=== PATIENT | female | born 1955 | race Caucasian/White ===

== ENCOUNTER 2021-01-01 23:08 | Emergency (ER) | payer MEDICARE, MEDICAID ==
[~2021-01-01] VITALS: Ht 175.3 cm; Wt 73.0 kg
[2021-01-02] MEDS ORDERED: HYDROCODONE/ACETAMINOPHEN 5/325MG TABLET PO ONE (00:45)
[2021-01-02 04:30] VITALS: BP 162/82
== END 2021-01-02 04:55 | disposition home or self-care (01) ==
LOC: ER 23:08
DX: M25.561 Pain in right knee (principal); N18.6 End stage renal disease; J44.9 Chronic obstructive pulmonary disease, unspecified; Z98.890 Other specified postprocedural states; Z99.2 Dependence on renal dialysis
CPT/HCPCS: 72170; 73552; 73562; 73590; 73610; 99284; L1830

== ENCOUNTER 2021-04-04 17:10 | Inpatient (IN) | payer MEDICARE, MEDICAID ==
[~2021-04-04] VITALS: Ht 170.2 cm; Wt 61.9 kg
[~2021-04-04 17:10] MED LIST: ALBU18HF2 PO; CARV25TA47 PO; FLUT1DIS3 PO; FOLI-43 PO; HYDR100T31 PO; LIDO1ADH48 TP; LOSA100T32 PO; NIFE-72 PO; PANT40TA51 PO; SUCR1TAB PO; TRAM50TA PO; ZOLP5TAB8 PO; [UNRECOGNIZED DRUG - CODE] PO
[2021-04-04 18:13] LABS: BASOPHILS % 0.5 % (0.0-2.0); EOSINOPHILS % 0.7 % (0.0-5.0); LYMPHOCYTES % 26.6 % (20.0-50.0); MEAN CORPUSCULAR HEMOGLOBIN 36.1 pg (28.0-32.0); MEAN CORPUSCULAR VOLUME 106.4 fL (81.0-99.0); MEAN PLATELET VOLUME 7.6 fl (7.4-10.4); MONOCYTES % 12.9 % (2.0-8.0); NEUTROPHILS % 59.3 % (40.0-76.0); PLATELET 99 x1000/uL (130-400); RED BLOOD CELL COUNT 1.82 mill/uL (4.2-5.4); RED CELL DISTRIBUTION WIDTH 19.6 % (11.6-14.6)
[2021-04-04 18:19] LABS: HEMATOCRIT. 19.3 % (36.0-48.0); HEMOGLOBIN. 6.6 g/dL (12.0-16.0)
[2021-04-04 18:20] LABS: CHLORIDE 106 mEq/L (98-107)
[2021-04-04 18:23] LABS: INR 1.1; PROTHROMBIN TIME 11.6 sec (9.6-11.0)
[2021-04-04 20:02] LABS: HEPATITIS B SURFACE ANTIGEN NEGATIVE
[2021-04-04] MEDS ORDERED: ONDANSETRON HCL 4MG/2ML INJ IV PRN (20:30)
[2021-04-04] MEDS ORDERED: ACETAMINOPHEN 325MG TABLET PO PRN ×2 (20:30)
[2021-04-04 21:35] VITALS: BP 136/65
[2021-04-04 22:15] VITALS: BP 136/65
[2021-04-05] VITALS: BP 137/72
[2021-04-05] MEDS ORDERED: HYDROCODONE/ACETAMINOPHEN 5/325MG TABLET PO ONE (07:45)
[2021-04-05] MEDS ORDERED: NALOXONE HCL 0.4MG/ML VIAL IV PRN (08:00)
[2021-04-05 09:00] VITALS: BP 123/62
[2021-04-05 12:00] VITALS: BP 140/66
[2021-04-05] MEDS: HYDROCODONE/ACETAMINOPHEN 10/325MG TABLET PO PRN (13:57)
[2021-04-05 16:00] VITALS: BP 120/53
[2021-04-05 16:47] LABS: BASOPHILS % 0.5 % (0.0-2.0); EOSINOPHILS % 0.8 % (0.0-5.0); LYMPHOCYTES % 29.1 % (20.0-50.0); MEAN CORPUSCULAR HEMOGLOBIN 35.8 pg (28.0-32.0); MEAN CORPUSCULAR VOLUME 106.6 fL (81.0-99.0); MEAN PLATELET VOLUME 7.9 fl (7.4-10.4); MONOCYTES % 11.2 % (2.0-8.0); NEUTROPHILS % 58.4 % (40.0-76.0); PLATELET 92 x1000/uL (130-400); RED BLOOD CELL COUNT 1.63 mill/uL (4.2-5.4); RED CELL DISTRIBUTION WIDTH 19.3 % (11.6-14.6)
[2021-04-05 16:58] LABS: HEMOGLOBIN. 5.8 g/dL (12.0-16.0)
[2021-04-05 16:59] LABS: HEMATOCRIT. 17.3 % (36.0-48.0)
[2021-04-05 17:05] LABS: PHOSPHORUS 5.4 mg/dL (2.5-4.9)
[2021-04-05] MEDS ORDERED: SODIUM POLYSTYRENE SULFONATE 15 G/60 ML BOT PO NR (19:00)
[2021-04-05 20:00] VITALS: BP 130/51
[2021-04-05] MEDS: HYDROXYZINE 25MG TABLET PO PRN (20:51)
[2021-04-06] VITALS: BP 150/84
[2021-04-06] MEDS: EPOETIN ALFA-EPBX 10,000 UNIT/ML VIAL SUBCUT SCH ×2 (01:58→20:02)
[2021-04-06 03:33] VITALS: BP 167/79
[2021-04-06 07:07] LABS: BASOPHILS % 0.4 % (0.0-2.0); EOSINOPHILS % 1.2 % (0.0-5.0); HEMATOCRIT. 23.2 % (36.0-48.0); HEMOGLOBIN. 8.1 g/dL (12.0-16.0); LYMPHOCYTES % 22.4 % (20.0-50.0); MEAN CORPUSCULAR HEMOGLOBIN 34.3 pg (28.0-32.0); MEAN CORPUSCULAR VOLUME 98.8 fL (81.0-99.0); MEAN PLATELET VOLUME 7.9 fl (7.4-10.4); MONOCYTES % 11.6 % (2.0-8.0); NEUTROPHILS % 64.4 % (40.0-76.0); PLATELET 90 x1000/uL (130-400); RED BLOOD CELL COUNT 2.35 mill/uL (4.2-5.4); RED CELL DISTRIBUTION WIDTH 22.9 % (11.6-14.6)
[2021-04-06 07:20] LABS: CHLORIDE 100 mEq/L (98-107)
[2021-04-06 07:26] LABS: PHOSPHORUS 4.1 mg/dL (2.5-4.9)
[2021-04-06 08:00] VITALS: BP 138/64
[2021-04-06] MEDS: HYDROXYZINE 25MG TABLET PO PRN (10:27)
[2021-04-06] MEDS: HYDROCODONE/ACETAMINOPHEN 10/325MG TABLET PO PRN (10:27)
[2021-04-06 13:16] LABS: PLATELET ESTIMATE SLIGHTLY DECREASED
[2021-04-06 16:00] VITALS: BP 117/59
[2021-04-06 20:00] VITALS: BP 131/62
[2021-04-06 21:25] LABS: HEPATITIS B SURFACE ANTIGEN NEGATIVE
[2021-04-07] VITALS (8 sets, daily range): BP systolic 135–165; BP diastolic 58–99
[2021-04-07 12:40] LABS: BASOPHILS % 0.3 % (0.0-2.0); EOSINOPHILS % 1.2 % (0.0-5.0); HEMATOCRIT. 24.9 % (36.0-48.0); HEMOGLOBIN. 8.5 g/dL (12.0-16.0); LYMPHOCYTES % 25.9 % (20.0-50.0); MEAN CORPUSCULAR HEMOGLOBIN 33.6 pg (28.0-32.0); MEAN CORPUSCULAR VOLUME 98.5 fL (81.0-99.0); MEAN PLATELET VOLUME 7.7 fl (7.4-10.4); NEUTROPHILS % 60.6 % (40.0-76.0); PLATELET 84 x1000/uL (130-400); RED BLOOD CELL COUNT 2.53 mill/uL (4.2-5.4); RED CELL DISTRIBUTION WIDTH 23.6 % (11.6-14.6)
[2021-04-07 12:54] LABS: PHOSPHORUS 5.4 mg/dL (2.5-4.9)
[2021-04-07] MEDS: HYDROCODONE/ACETAMINOPHEN 10/325MG TABLET PO PRN (13:22)
[2021-04-07] MEDS: HYDROXYZINE 25MG TABLET PO PRN (13:23)
[2021-04-08] VITALS: BP 157/74
[2021-04-08 04:00] VITALS: BP 147/70
[2021-04-08 08:00] VITALS: BP 151/72
[2021-04-08 12:00] VITALS: BP 169/79
== END 2021-04-08 15:30 | disposition home or self-care (01) | DRG 377 ==
LOC: ER 17:10 → EDBEDREQTM 19:01 → EDBEDREQ 19:01 → SUPCPDRO 19:12 → ENRESERV 20:31 → 7EST 21:35
PROVIDERS: ADMIT Internal Medicine; ATTEND Internal Medicine
PROC: 30233N1 Transfusion of Nonautologous Red Blood Cells into Peripheral Vein, Percutaneous Approach (ICD-10-PCS; principal; 2021-04-05)
PROC: 5A1D80Z Performance of Urinary Filtration, Prolonged Intermittent, 6-18 hours Per Day (ICD-10-PCS; 2021-04-05)
PROC: 5A1D70Z Performance of Urinary Filtration, Intermittent, Less than 6 Hours Per Day (ICD-10-PCS; 2021-04-07)
DX: K92.2 Gastrointestinal hemorrhage, unspecified (principal); N18.6 End stage renal disease; I12.0 Hypertensive chronic kidney disease with stage 5 chronic kidney disease or end stage renal disease; D61.818 Other pancytopenia; E46 Unspecified protein-calorie malnutrition; J90 Pleural effusion, not elsewhere classified; E87.5 Hyperkalemia; J44.9 Chronic obstructive pulmonary disease, unspecified; D64.9 Anemia, unspecified; Z79.899 Other long term (current) drug therapy; Z68.21 Body mass index [BMI] 21.0-21.9, adult; Z99.2 Dependence on renal dialysis; Z99.81 Dependence on supplemental oxygen; M79.642 Pain in left hand; R06.02 Shortness of breath; E87.8 Other disorders of electrolyte and fluid balance, not elsewhere classified
CPT/HCPCS: 36415; 71045; 80048; 80053; 82270; 83735; 83880; 84100; 84484; 85025; 86705; 86709; 86803; 86850; 86900; 86920; 87340; 93005; 97162; 97166; 99291; J0885; P9016

== ENCOUNTER 2021-04-09 17:48 | Inpatient (IN) | payer MEDICARE, MEDICAID ==
[~2021-04-09] VITALS: Ht 175.3 cm; Wt 81.2 kg
[2021-04-09] MEDS ORDERED: SODIUM CHLORIDE 0.9% 1,000 ML IV ONE (20:00)
[2021-04-09 21:28] LABS: BASOPHILS % 0.3 % (0.0-2.0); EOSINOPHILS % 0.9 % (0.0-5.0); HEMATOCRIT. 21.4 % (36.0-48.0); HEMOGLOBIN. 7.5 g/dL (12.0-16.0); LYMPHOCYTES % 24.2 % (20.0-50.0); MEAN CORPUSCULAR HEMOGLOBIN 34.9 pg (28.0-32.0); MEAN CORPUSCULAR VOLUME 99.6 fL (81.0-99.0); MEAN PLATELET VOLUME 7.6 fl (7.4-10.4); MONOCYTES % 12.9 % (2.0-8.0); NEUTROPHILS % 61.7 % (40.0-76.0); PLATELET 76 x1000/uL (130-400); RED BLOOD CELL COUNT 2.15 mill/uL (4.2-5.4)
[2021-04-09 21:36] LABS: CHLORIDE 103 mEq/L (98-107)
[2021-04-09 21:53] LABS: PLATELET ESTIMATE DECREASED
[2021-04-09 23:04] LABS: INR 1.2; PARTIAL THROMBOPLASTIN TIME 27.7 sec (23.4-31.0); PROTHROMBIN TIME 12.4 sec (9.6-11.0)
[2021-04-09 23:15] LABS: HEPATITIS B SURFACE ANTIGEN NEGATIVE
[2021-04-10] VITALS (8 sets, daily range): BP systolic 132–162; BP diastolic 62–95
[2021-04-10] MEDS ORDERED: CLONIDINE 0.1MG TABLET PO PRN (08:45)
[2021-04-10] MEDS ORDERED: ACETAMINOPHEN 325MG TABLET PO PRN (08:45)
[2021-04-10] MEDS ORDERED: ONDANSETRON HCL 4MG/2ML INJ IV PRN (08:45)
[2021-04-10] MEDS: SODIUM CHLORIDE 0.9% 1,000 ML IV SCH ×2 (11:13→22:14)
[2021-04-10] MEDS: PANTOPRAZOLE SODIUM 40 MG/VIAL IV SCH (11:13)
[2021-04-10] MEDS: LOSARTAN POTASSIUM 100 MG TABLET PO SCH (12:00)
[2021-04-10] MEDS ORDERED: ALBUTEROL 6.7GM HFA INHALER INH PRN (12:00)
[2021-04-10] MEDS ORDERED: SUCRALFATE 1G TABLET PO SCH (12:00)
[2021-04-10] MEDS ORDERED: LIDOCAINE TP SCH (12:00)
[2021-04-10] MEDS: FOLIC ACID 1MG TABLET PO SCH (12:00)
[2021-04-10] MEDS ORDERED: ALBUTEROL (0.083%) 2.5MG/3ML NEB HHN PRN (12:15)
[2021-04-10] MEDS ORDERED: NALOXONE HCL 0.4MG/ML VIAL IV PRN (12:15)
[2021-04-10] MEDS ORDERED: SUCR1TAB PO ×3 (12:52→14:48)
[2021-04-10] MEDS ORDERED: CALCIUM CARBONATE 400 MG PO SCH (13:00)
[2021-04-10] MEDS: HYDRALAZINE HCL 100MG TABLET PO SCH ×2 (13:00→17:00)
[2021-04-10 13:05] LABS: MEAN CORPUSCULAR HEMOGLOBIN 34.7 pg (28.0-32.0); MEAN CORPUSCULAR VOLUME 100.2 fL (81.0-99.0); PLATELET 66 x1000/uL (130-400); RED BLOOD CELL COUNT 1.84 mill/uL (4.2-5.4); RED CELL DISTRIBUTION WIDTH 23.2 % (11.6-14.6)
[2021-04-10] MEDS ORDERED: NIFE-32 PO (13:08)
[2021-04-10] MEDS ORDERED: CALC-586 PO ×2 (13:09→13:14)
[2021-04-10] MEDS ORDERED: SUCRALFATE 1G TABLET PO PRN (13:15)
[2021-04-10 13:20] LABS: HEMATOCRIT 18.4 % (36.0-48.0); HEMOGLOBIN 6.4 g/dL (12.0-16.0)
[2021-04-10] MEDS: NIFEDIPINE XL 60MG TAB PO SCH (14:00)
[2021-04-10] MEDS ORDERED: LIDOCAINE HCL 1% 20ML VIAL (Pyxis) INJ ONE (14:07)
[2021-04-10] MEDS ORDERED: CARV25TA47 PO (14:34)
[2021-04-10] MEDS ORDERED: LIDO1ADH48 TP (14:50)
[2021-04-10] MEDS ORDERED: LIDO700A30 EXT (14:53)
[2021-04-10] MEDS ORDERED: CARV12.545 PO (14:59)
[2021-04-10] MEDS: SUCRALFATE 1G TABLET PO SCH (15:15)
[2021-04-10] MEDS ORDERED: MEDICATION NOT ON FORMULARY EA (Carvedilol 25 MG) PO SCH (17:00)
[2021-04-10] MEDS ORDERED: NIFEDIPINE 60 MG PO SCH (17:00)
[2021-04-10] MEDS ORDERED: SALMETEROL NEB SCH (17:00)
[2021-04-10] MEDS ORDERED: FLUTICASONE NEB SCH (17:00)
[2021-04-10] MEDS ORDERED: CALCIUM CARBONATE 500 MG PO SCH (17:00)
[2021-04-10] MEDS ORDERED: LIDOCAINE 5% PATCH TOP PRN (18:00)
[2021-04-10] MEDS ORDERED: ZOLPIDEM TARTRATE 5MG TABLET PO PRN (21:00)
[2021-04-10] MEDS: TRAMADOL 50MG TABLET PO PRN (21:26)
[2021-04-10] MEDS: CARVEDILOL 12.5MG TABLET PO SCH (21:26)
[2021-04-10] MEDS: CALCIUM CARBONATE 500MG TABLET CHEW PO SCH (21:27)
[2021-04-10 22:16] LABS: HEMATOCRIT 21.5 % (36.0-48.0); HEMOGLOBIN 7.4 g/dL (12.0-16.0)
[2021-04-11] VITALS: BP 126/61
[2021-04-11] MEDS: HYDROCODONE/ACETAMINOPHEN 5/325MG TABLET PO PRN ×3 (00:26→20:48)
[2021-04-11 04:00] VITALS: BP 118/59
[2021-04-11] MEDS: DIPHENHYDRAMINE 50MG/ML VIAL IV PRN ×2 (04:18→16:23)
[2021-04-11 05:38] LABS: BASOPHILS % 0.5 % (0.0-2.0); EOSINOPHILS % 1.5 % (0.0-5.0); HEMOGLOBIN. 7.2 g/dL (12.0-16.0); LYMPHOCYTES % 38.4 % (20.0-50.0); MEAN CORPUSCULAR HEMOGLOBIN 35.8 pg (28.0-32.0); MEAN CORPUSCULAR VOLUME 100.9 fL (81.0-99.0); MEAN PLATELET VOLUME 8.2 fl (7.4-10.4); MONOCYTES % 9.7 % (2.0-8.0); NEUTROPHILS % 49.9 % (40.0-76.0); PLATELET 56 x1000/uL (130-400); RED CELL DISTRIBUTION WIDTH 24.4 % (11.6-14.6)
[2021-04-11 05:39] LABS: CHLORIDE 106 mEq/L (98-107)
[2021-04-11 05:50] LABS: HEMATOCRIT. 20.1 % (36.0-48.0)
[2021-04-11 05:57] LABS: LDL CHOLESTEROL 32 mg/dL (5-100)
[2021-04-11 05:59] LABS: HDL CHOLESTEROL 30 mg/dL (40-59)
[2021-04-11 06:01] LABS: FOLIC ACID (FOLATE) SERUM 8.7 ng/mL (>5.38); TOTAL IRON BINDING CAPACITY 254 ug/dL (250-450)
[2021-04-11 08:00] VITALS: BP 133/58
[2021-04-11] MEDS: CALCIUM CARBONATE 500MG TABLET CHEW PO SCH ×3 (08:59→20:49)
[2021-04-11] MEDS: PANTOPRAZOLE SODIUM 40 MG/VIAL IV SCH (09:00)
[2021-04-11] MEDS: HYDRALAZINE HCL 100MG TABLET PO SCH ×2 (09:00→13:00)
[2021-04-11] MEDS: LOSARTAN POTASSIUM 100 MG TABLET PO SCH (09:00)
[2021-04-11] MEDS: CARVEDILOL 12.5MG TABLET PO SCH ×2 (09:00→20:49)
[2021-04-11] MEDS: SUCRALFATE 1G TABLET PO SCH (09:01)
[2021-04-11] MEDS: FOLIC ACID 1MG TABLET PO SCH (09:01)
[2021-04-11] MEDS: NIFEDIPINE XL 60MG TAB PO SCH (09:01)
[2021-04-11] MEDS: SODIUM CHLORIDE 0.9% 1,000 ML IV SCH (11:50)
[2021-04-11 12:00] VITALS: BP 95/44
[2021-04-11 16:00] VITALS: BP 121/61
[2021-04-11 19:19] LABS: HEPATITIS B SURFACE ANTIGEN NEGATIVE
[2021-04-11] MEDS: ALBUTEROL (0.083%) 2.5MG/3ML NEB HHN SCH (19:35)
[2021-04-11 20:00] VITALS: BP 113/53
[2021-04-11] MEDS: EPOETIN ALFA-EPBX 10,000 UNIT/ML VIAL SUBCUT SCH (20:47)
[2021-04-12] VITALS (7 sets, daily range): BP systolic 107–139; BP diastolic 47–67
[2021-04-12] MEDS: SODIUM CHLORIDE 0.9% 1,000 ML IV SCH ×2 (00:45→15:41)
[2021-04-12] MEDS: ALBUTEROL (0.083%) 2.5MG/3ML NEB HHN SCH ×3 (01:15→22:31)
[2021-04-12] MEDS: CARVEDILOL 12.5MG TABLET PO SCH ×2 (09:00→21:00)
[2021-04-12] MEDS: CALCIUM CARBONATE 500MG TABLET CHEW PO SCH ×7 (09:00→21:00)
[2021-04-12 09:26] LABS: BASOPHILS % 0.7 % (0.0-2.0); EOSINOPHILS % 1.5 % (0.0-5.0); HEMOGLOBIN. 8.1 g/dL (12.0-16.0); LYMPHOCYTES % 31.4 % (20.0-50.0); MEAN CORPUSCULAR HEMOGLOBIN 33.5 pg (28.0-32.0); MEAN CORPUSCULAR VOLUME 98.8 fL (81.0-99.0); MEAN PLATELET VOLUME 8.8 fl (7.4-10.4); MONOCYTES % 10.9 % (2.0-8.0); NEUTROPHILS % 55.5 % (40.0-76.0); PLATELET 53 x1000/uL (130-400); RED BLOOD CELL COUNT 2.43 mill/uL (4.2-5.4); RED CELL DISTRIBUTION WIDTH 24.2 % (11.6-14.6)
[2021-04-12] MEDS: HYDROCODONE/ACETAMINOPHEN 5/325MG TABLET PO PRN (12:03)
[2021-04-12] MEDS: PANTOPRAZOLE SODIUM 40 MG/VIAL IV SCH (12:03)
[2021-04-12] MEDS: SUCRALFATE 1G TABLET PO SCH (12:04)
[2021-04-12] MEDS: HYDRALAZINE HCL 100MG TABLET PO SCH ×4 (12:05→17:00)
[2021-04-12] MEDS: LOSARTAN POTASSIUM 100 MG TABLET PO SCH (12:05)
[2021-04-12] MEDS: NIFEDIPINE XL 60MG TAB PO SCH (12:05)
[2021-04-12] MEDS: FOLIC ACID 1MG TABLET PO SCH (12:05)
[2021-04-12] MEDS: TRAMADOL 50MG TABLET PO PRN (15:34)
[2021-04-12] MEDS: BUDESONIDE 0.5MG/2ML NEB HHN SCH (22:31)
[2021-04-13] VITALS: BP 109/55
[2021-04-13] MEDS: ALBUTEROL (0.083%) 2.5MG/3ML NEB HHN SCH ×3 (03:36→12:00)
[2021-04-13 04:00] VITALS: BP 134/60
[2021-04-13] MEDS: SODIUM CHLORIDE 0.9% 1,000 ML IV SCH ×2 (04:58→16:45)
[2021-04-13] MEDS: HYDROCODONE/ACETAMINOPHEN 5/325MG TABLET PO PRN ×3 (06:08→22:00)
[2021-04-13 07:57] LABS: BASOPHILS % 0.3 % (0.0-2.0); EOSINOPHILS % 1.3 % (0.0-5.0); HEMATOCRIT. 22.1 % (36.0-48.0); HEMOGLOBIN. 7.3 g/dL (12.0-16.0); LYMPHOCYTES % 28.4 % (20.0-50.0); MEAN CORPUSCULAR HEMOGLOBIN 33.3 pg (28.0-32.0); MEAN CORPUSCULAR VOLUME 100.1 fL (81.0-99.0); MEAN PLATELET VOLUME 8.4 fl (7.4-10.4); MONOCYTES % 10.8 % (2.0-8.0); NEUTROPHILS % 59.2 % (40.0-76.0); PLATELET 66 x1000/uL (130-400); RED CELL DISTRIBUTION WIDTH 24.6 % (11.6-14.6)
[2021-04-13 08:00] VITALS: BP 135/67
[2021-04-13] MEDS: BUDESONIDE 0.5MG/2ML NEB HHN SCH (08:35)
[2021-04-13] MEDS: CALCIUM CARBONATE 500MG TABLET CHEW PO SCH ×4 (09:00→22:00)
[2021-04-13] MEDS: TRAMADOL 50MG TABLET PO PRN (09:51)
[2021-04-13] MEDS: CARVEDILOL 12.5MG TABLET PO SCH ×2 (09:52→21:59)
[2021-04-13] MEDS: FOLIC ACID 1MG TABLET PO SCH (09:52)
[2021-04-13] MEDS: NIFEDIPINE XL 60MG TAB PO SCH (09:52)
[2021-04-13] MEDS: SUCRALFATE 1G TABLET PO SCH (09:53)
[2021-04-13] MEDS: LOSARTAN POTASSIUM 100 MG TABLET PO SCH (09:53)
[2021-04-13] MEDS: HYDRALAZINE HCL 100MG TABLET PO SCH ×3 (09:53→17:00)
[2021-04-13] MEDS: PANTOPRAZOLE SODIUM 40 MG/VIAL IV SCH (09:59)
[2021-04-13] MEDS ORDERED: MIDAZOLAM HCL 5 MG/5 ML VIAL ONE (11:22)
[2021-04-13] MEDS ORDERED: FENTANYL CITRATE/PF 50MCG/ML 2ML VIAL IV PRN (11:22)
[2021-04-13] MEDS ORDERED: MIDAZOLAM HCL 5 MG/5 ML VIAL IV PRN (11:22)
[2021-04-13] MEDS ORDERED: FENTANYL CITRATE/PF 50MCG/ML 2ML VIAL ONE (11:22)
[2021-04-13] MEDS ORDERED: LIDOCAINE HCL 4% (40MG/ML) SOLN 50ML TOP ONE (13:30)
[2021-04-13] MEDS ORDERED: MENT120G3 TP (13:46)
[2021-04-13] MEDS ORDERED: DICL100G31 TP (13:46)
[2021-04-13] MEDS ORDERED: LIDO1ADH48 TP (13:46)
[2021-04-13] MEDS: GABAPENTIN 100MG CAPSULE PO SCH ×2 (14:54→18:19)
[2021-04-13 16:00] VITALS: BP 107/55
[2021-04-13] MEDS ORDERED: MENTHOL/LANOLIN/CALAMINE/ZN OX OINT 71GM TOP PRN (16:00)
[2021-04-13] MEDS: IPRATROPIUM/ALBUTEROL 0.5-3(2.5)MG/3ML NEB HHN PRN ×2 (16:12→19:40)
[2021-04-13] MEDS ORDERED: LIDOCAINE HCL 4% CREAM 76GM TUBE TP SCH (17:00)
[2021-04-13 20:00] VITALS: BP 132/69
[2021-04-13] MEDS: EPOETIN ALFA-EPBX 10,000 UNIT/ML VIAL SUBCUT SCH (22:06)
[2021-04-14] VITALS: BP 123/64
[2021-04-14 04:00] VITALS: BP 122/68
[2021-04-14] MEDS: IPRATROPIUM/ALBUTEROL 0.5-3(2.5)MG/3ML NEB HHN PRN (04:19)
[2021-04-14 08:00] VITALS: BP 138/73
[2021-04-14] MEDS: BUDESONIDE 0.5MG/2ML NEB HHN SCH (08:11)
[2021-04-14] MEDS: ALBUTEROL (0.083%) 2.5MG/3ML NEB HHN SCH (08:12)
== END 2021-04-14 09:50 | disposition home health service (06) | DRG 377 ==
LOC: ER 17:48 → MICUSO 23:53 → 8WST 04-10 04:58
PROVIDERS: ADMIT Internal Medicine; ATTEND Internal Medicine
PROC: 30233N1 Transfusion of Nonautologous Red Blood Cells into Peripheral Vein, Percutaneous Approach (ICD-10-PCS; principal; 2021-04-10)
PROC: 5A1D70Z Performance of Urinary Filtration, Intermittent, Less than 6 Hours Per Day (ICD-10-PCS; 2021-04-10)
PROC: 02HV33Z Insertion of Infusion Device into Superior Vena Cava, Percutaneous Approach (ICD-10-PCS; 2021-04-10)
PROC: B518ZZA Fluoroscopy of Superior Vena Cava, Guidance (ICD-10-PCS; 2021-04-10)
PROC: B548ZZA Ultrasonography of Superior Vena Cava, Guidance (ICD-10-PCS; 2021-04-10)
PROC: 5A1D70Z Performance of Urinary Filtration, Intermittent, Less than 6 Hours Per Day (ICD-10-PCS; 2021-04-12)
PROC: 0DB78ZX Excision of Stomach, Pylorus, Via Natural or Artificial Opening Endoscopic, Diagnostic (ICD-10-PCS; 2021-04-13)
PROC: 5A1D70Z Performance of Urinary Filtration, Intermittent, Less than 6 Hours Per Day (ICD-10-PCS; 2021-04-14)
DX: K55.21 Angiodysplasia of colon with hemorrhage (principal); N18.6 End stage renal disease; I13.2 Hypertensive heart and chronic kidney disease with heart failure and with stage 5 chronic kidney disease, or end stage renal disease; D62 Acute posthemorrhagic anemia; B19.20 Unspecified viral hepatitis C without hepatic coma; D53.9 Nutritional anemia, unspecified; I50.9 Heart failure, unspecified; J44.9 Chronic obstructive pulmonary disease, unspecified; E88.09 Other disorders of plasma-protein metabolism, not elsewhere classified; D69.6 Thrombocytopenia, unspecified; K57.90 Diverticulosis of intestine, part unspecified, without perforation or abscess without bleeding; Z20.822 Contact with and (suspected) exposure to COVID-19; D70.9 Neutropenia, unspecified; K74.60 Unspecified cirrhosis of liver; M79.642 Pain in left hand; K29.70 Gastritis, unspecified, without bleeding; Z99.2 Dependence on renal dialysis; Z86.010 Personal history of colon polyps; Z79.899 Other long term (current) drug therapy
CPT/HCPCS: 36415; 36573; 71045; 80048; 80053; 80061; 80076; 82248; 82270; 82607; 82728; 82746; 83540; 83550; 84443; 85014; 85018; 85025; 85027; 86705; 86709; 86803; 86850; 86900; 86920; 87340; 87426; 88305; 88312; 88313; 93005; 93970; 94640; 99291; C1725; C9113; J0885; J1200; J2250; J3010; J3490; J7030; J7626; P9016

== ENCOUNTER 2021-04-15 14:45 | Inpatient (IN) | payer MEDICARE, MEDICAID ==
[~2021-04-15] VITALS: Ht 175.3 cm; Wt 74.5 kg
[~2021-04-15 14:45] MED LIST changes: +CALC-586 PO; +CARV12.545 PO; -CARV25TA47 PO; +DICL100G31 TP; +LIDO700A30 EXT; +MENT120G3 TP; +NIFE-32 PO; -NIFE-72 PO; -[UNRECOGNIZED DRUG - CODE] PO
[2021-04-15] MEDS ORDERED: ONDANSETRON HCL 4MG/2ML INJ IV STA (15:18)
[2021-04-15 15:49] LABS: BG BASE EXCESS -1.5 mmol/L (-2.0-2.0); BG DEOXYHEMOGLOBIN 1.6 % (0.0-5.0); BG FRACTION INSPIRED OXYGEN 40; BG HCO3 ACT 22.1 mmol/L (22.0-26.0); BG METHEMOGLOBIN 0.2 % (0.0-1.5); BG OXYGEN SATURATION 98.4 % (92.0-98.5); BG OXYHEMOGLOBIN 97.2 % (94.0-97.0); BG PCO2 32.7 mmHg (35.0-45.0); BG PH 7.448 (7.350-7.450); BG PO2 120.1 mmHg (75.0-100.0); BG SAMPLE SITE RIGHT BRACHIAL; BG TOTAL HEMOGLOBIN 8.9 g/dL (12.0-18.0); BG VENT MODE NASAL CANNULA
[2021-04-15] MEDS ORDERED: ALBUTEROL (0.083%) 2.5MG/3ML NEB HHN STA (15:49)
[2021-04-15] MEDS ORDERED: IPRATROPIUM BROMIDE (0.02%) 0.5MG/2.5ML NEB HHN STA (15:49)
[2021-04-15] MEDS ORDERED: CARVEDILOL 12.5MG TABLET PO ONE (16:00)
[2021-04-15] MEDS ORDERED: METHYLPREDNISOLONE SOD SUCC 125 MG/2 ML VIAL IV ONE (16:00)
[2021-04-15] MEDS ORDERED: LOSARTAN POTASSIUM 100 MG TABLET PO ONE (16:00)
[2021-04-15] MEDS ORDERED: NIFEDIPINE XL 60MG TAB PO ONE (16:00)
[2021-04-15] MEDS ORDERED: HYDRALAZINE HCL 100MG TABLET PO ONE (16:00)
[2021-04-15 16:15] LABS: BASOPHILS % 0.3 % (0.0-2.0); EOSINOPHILS % 0.7 % (0.0-5.0); HEMATOCRIT. 24.4 % (36.0-48.0); HEMOGLOBIN. 8.2 g/dL (12.0-16.0); LYMPHOCYTES % 14.9 % (20.0-50.0); MEAN CORPUSCULAR HEMOGLOBIN 33.4 pg (28.0-32.0); MEAN CORPUSCULAR VOLUME 99.6 fL (81.0-99.0); MEAN PLATELET VOLUME 7.8 fl (7.4-10.4); MONOCYTES % 6.6 % (2.0-8.0); NEUTROPHILS % 77.5 % (40.0-76.0); PLATELET 85 x1000/uL (130-400); RED BLOOD CELL COUNT 2.45 mill/uL (4.2-5.4)
[2021-04-15 16:21] LABS: CHLORIDE 111 mEq/L (98-107)
[2021-04-15 16:47] LABS: INR 1.1; PROTHROMBIN TIME 11.8 sec (9.6-11.0)
[2021-04-15] MEDS ORDERED: CALCIUM CHLORIDE 1GM/10ML SYR IV ONE (18:15)
[2021-04-15] MEDS ORDERED: DEXTROSE 50% WATER 50ML SYRINGE IV ONE (18:15)
[2021-04-15] MEDS ORDERED: INSULIN REGULAR (HUMULIN R) 300UNITS/3ML VIAL IV ONE (18:15)
[2021-04-15] MEDS: CALCIUM CHLORIDE 1GM/10ML SYR IV NR ×2 (18:39→20:10)
[2021-04-15] MEDS ORDERED: ACETAMINOPHEN 650MG/20.3ML UDC PO ONE (18:45)
[2021-04-15] MEDS ORDERED: MAGNESIUM/ALUMINUM HYDROXIDE/SIMETHICONE 30ML UDC PO PRN (21:30)
[2021-04-15] MEDS ORDERED: DIPHENHYDRAMINE 50MG/ML VIAL IV PRN (21:30)
[2021-04-15] MEDS ORDERED: ONDANSETRON HCL 4MG/2ML INJ IV PRN (21:30)
[2021-04-15] MEDS ORDERED: DOCUSATE SODIUM 100MG CAPSULE PO PRN (21:30)
[2021-04-15] MEDS ORDERED: IPRATROPIUM/ALBUTEROL 0.5-3(2.5)MG/3ML NEB NEB PRN (21:30)
[2021-04-15] MEDS ORDERED: GUAIFENESIN 200MG/10ML SUGAR FREE UDC PO PRN (21:30)
[2021-04-15] MEDS ORDERED: ACETAMINOPHEN 325MG TABLET PO PRN ×2 (21:30)
[2021-04-15 21:58] LABS: TOTAL IRON BINDING CAPACITY 299 ug/dL (250-450)
[2021-04-15 22:14] LABS: FOLIC ACID (FOLATE) SERUM 17.7 ng/mL (>5.38)
[2021-04-15 23:00] VITALS: BP 170/75
[2021-04-15 23:30] LABS: CREATINE KINASE 161 IU/L (26-192)
[2021-04-16] VITALS (14 sets, daily range): BP systolic 103–170; BP diastolic 49–79
[2021-04-16] MEDS: CLONIDINE 0.1MG TABLET PO PRN (05:28)
[2021-04-16 06:37] LABS: BASOPHILS % 0.2 % (0.0-2.0); LYMPHOCYTES % 10.1 % (20.0-50.0); MEAN CORPUSCULAR HEMOGLOBIN 33.4 pg (28.0-32.0); MEAN CORPUSCULAR VOLUME 100.6 fL (81.0-99.0); MEAN PLATELET VOLUME 8.5 fl (7.4-10.4); MONOCYTES % 1.8 % (2.0-8.0); NEUTROPHILS % 87.9 % (40.0-76.0); PLATELET 83 x1000/uL (130-400); RED BLOOD CELL COUNT 2.08 mill/uL (4.2-5.4); RED CELL DISTRIBUTION WIDTH 24.2 % (11.6-14.6)
[2021-04-16 07:17] LABS: PHOSPHORUS 3.8 mg/dL (2.5-4.9)
[2021-04-16 07:19] LABS: CREATINE KINASE 133 IU/L (26-192)
[2021-04-16 07:22] LABS: CREATINE KINASE MB FRACTION 2.3 ng/mL (0.5-3.6)
[2021-04-16 07:46] LABS: HEMATOCRIT. 20.9 % (36.0-48.0); HEMOGLOBIN. 6.9 g/dL (12.0-16.0)
[2021-04-16] MEDS: NIFEDIPINE XL 60MG TAB PO SCH (08:10)
[2021-04-16 08:37] LABS: CHLORIDE 105 mEq/L (98-107)
[2021-04-16] MEDS ORDERED: SODIUM POLYSTYRENE SULFONATE 15 G/60 ML BOT PO SCH (11:00)
[2021-04-16 12:50] LABS: PLATELET ESTIMATE DECREASED
[2021-04-16] MEDS ORDERED: SODIUM BICARBONATE 8.4% 1 MEQ/ML 50ML SYR IV NR (13:45)
[2021-04-16] MEDS ORDERED: FOLIC ACID 1MG TABLET PO SCH (14:15)
[2021-04-16] MEDS: PANTOPRAZOLE 40MG DR TABLET PO SCH ×2 (17:00→17:55)
[2021-04-16 17:11] LABS: HEPATITIS B SURFACE ANTIGEN NEGATIVE
[2021-04-16 20:17] LABS: BASOPHILS % 0.1 % (0.0-2.0); HEMATOCRIT. 21.5 % (36.0-48.0); HEMOGLOBIN. 7.1 g/dL (12.0-16.0); MEAN CORPUSCULAR HEMOGLOBIN 33.1 pg (28.0-32.0); MEAN CORPUSCULAR VOLUME 100.4 fL (81.0-99.0); MEAN PLATELET VOLUME 7.9 fl (7.4-10.4); MONOCYTES % 7.6 % (2.0-8.0); NEUTROPHILS % 77.3 % (40.0-76.0); PLATELET 82 x1000/uL (130-400); RED BLOOD CELL COUNT 2.14 mill/uL (4.2-5.4); RED CELL DISTRIBUTION WIDTH 21.8 % (11.6-14.6)
[2021-04-16 20:27] LABS: INR 1.2; PROTHROMBIN TIME 12.5 sec (9.6-11.0)
[2021-04-16] MEDS: EPOETIN ALFA-EPBX 10,000 UNIT/ML VIAL SUBCUT SCH (23:10)
[2021-04-17] VITALS (10 sets, daily range): BP systolic 112–137; BP diastolic 49–76
[2021-04-17 07:33] LABS: BASOPHILS % 0.4 % (0.0-2.0); EOSINOPHILS % 0.3 % (0.0-5.0); LYMPHOCYTES % 21.3 % (20.0-50.0); MEAN CORPUSCULAR HEMOGLOBIN 33.6 pg (28.0-32.0); MEAN CORPUSCULAR VOLUME 101.3 fL (81.0-99.0); MEAN PLATELET VOLUME 8.2 fl (7.4-10.4); MONOCYTES % 10.4 % (2.0-8.0); NEUTROPHILS % 67.6 % (40.0-76.0); PLATELET 81 x1000/uL (130-400); RED BLOOD CELL COUNT 2.06 mill/uL (4.2-5.4); RED CELL DISTRIBUTION WIDTH 22.7 % (11.6-14.6)
[2021-04-17 07:55] LABS: HEMATOCRIT. 20.8 % (36.0-48.0); HEMOGLOBIN. 6.9 g/dL (12.0-16.0)
[2021-04-17] MEDS ORDERED: LIDOCAINE HCL 1% 20ML VIAL (Pyxis) INJ ONE (08:13)
[2021-04-17] MEDS: SUCRALFATE 1G TABLET PO SCH (09:03)
[2021-04-17] MEDS: PANTOPRAZOLE 40MG DR TABLET PO SCH ×2 (09:03→16:41)
[2021-04-17] MEDS: NIFEDIPINE XL 60MG TAB PO SCH (09:05)
[2021-04-17 16:12] LABS: BASOPHILS % 0.4 % (0.0-2.0); EOSINOPHILS % 0.8 % (0.0-5.0); HEMATOCRIT. 23.9 % (36.0-48.0); HEMOGLOBIN. 7.9 g/dL (12.0-16.0); LYMPHOCYTES % 26.2 % (20.0-50.0); MEAN CORPUSCULAR HEMOGLOBIN 31.7 pg (28.0-32.0); MEAN CORPUSCULAR VOLUME 95.9 fL (81.0-99.0); MEAN PLATELET VOLUME 7.7 fl (7.4-10.4); MONOCYTES % 10.1 % (2.0-8.0); NEUTROPHILS % 62.5 % (40.0-76.0); PLATELET 82 x1000/uL (130-400); RED CELL DISTRIBUTION WIDTH 25.1 % (11.6-14.6)
[2021-04-17] MEDS ORDERED: MIDAZOLAM HCL 5 MG/5 ML VIAL IV PRN (16:20)
[2021-04-17] MEDS ORDERED: FENTANYL CITRATE/PF 50MCG/ML 2ML VIAL IV PRN (16:21)
[2021-04-17] MEDS ORDERED: MIDAZOLAM HCL 5 MG/5 ML VIAL ONE (16:24)
[2021-04-17] MEDS ORDERED: FENTANYL CITRATE/PF 50MCG/ML 2ML VIAL ONE (16:24)
[2021-04-17 16:25] LABS: INR 1.1; PROTHROMBIN TIME 12.2 sec (9.6-11.0)
[2021-04-17] MEDS ORDERED: SIMETHICONE 40 MG/0.6 ML 30ML ONE (16:38)
[2021-04-17 16:55] LABS: HEPATITIS B SURFACE ANTIGEN NEGATIVE
[2021-04-18] VITALS: BP 122/53
[2021-04-18 04:00] VITALS: BP 140/72
[2021-04-18 05:37] LABS: BASOPHILS % 0.9 % (0.0-2.0); HEMOGLOBIN. 8.6 g/dL (12.0-16.0); LYMPHOCYTES % 26.4 % (20.0-50.0); MEAN CORPUSCULAR HEMOGLOBIN 31.9 pg (28.0-32.0); MEAN CORPUSCULAR VOLUME 96.1 fL (81.0-99.0); MEAN PLATELET VOLUME 7.7 fl (7.4-10.4); MONOCYTES % 10.9 % (2.0-8.0); NEUTROPHILS % 60.8 % (40.0-76.0); PLATELET 87 x1000/uL (130-400)
[2021-04-18 08:00] VITALS: BP 149/66
[2021-04-18] MEDS: NIFEDIPINE XL 60MG TAB PO SCH (09:51)
[2021-04-18] MEDS: SUCRALFATE 1G TABLET PO SCH (09:51)
[2021-04-18] MEDS: PANTOPRAZOLE 40MG DR TABLET PO SCH ×2 (09:51→16:12)
[2021-04-18 12:00] VITALS: BP 156/76
[2021-04-18 16:00] VITALS: BP 140/68
[2021-04-18 20:00] VITALS: BP 140/69
[2021-04-18] MEDS: EPOETIN ALFA-EPBX 10,000 UNIT/ML VIAL SUBCUT SCH (21:24)
[2021-04-19] VITALS: BP 169/75
[2021-04-19 04:00] VITALS: BP 148/65
[2021-04-19 08:00] VITALS: BP 129/69
[2021-04-19] MEDS: SUCRALFATE 1G TABLET PO SCH (08:55)
[2021-04-19] MEDS: NIFEDIPINE XL 60MG TAB PO SCH (08:55)
[2021-04-19] MEDS: PANTOPRAZOLE 40MG DR TABLET PO SCH ×2 (08:55→17:28)
[2021-04-19 12:00] VITALS: BP 174/76
[2021-04-19] MEDS: CLONIDINE 0.1MG TABLET PO PRN (12:37)
[2021-04-19 16:00] VITALS: BP 156/75
[2021-04-19] MEDS ORDERED: INFLUENZA VACCINE 05/PF 0.5 ML SYRINGE IM ONE (17:00)
[2021-04-19 20:00] VITALS: BP 143/67
[2021-04-20] VITALS: BP 137/68
[2021-04-20 04:00] VITALS: BP 157/66
[2021-04-20] MEDS: CLONIDINE 0.1MG TABLET PO PRN (04:50)
[2021-04-20 07:04] LABS: BASOPHILS % 0.5 % (0.0-2.0); HEMATOCRIT. 24.4 % (36.0-48.0); HEMOGLOBIN. 8.1 g/dL (12.0-16.0); LYMPHOCYTES % 23.2 % (20.0-50.0); MEAN CORPUSCULAR VOLUME 96.9 fL (81.0-99.0); MEAN PLATELET VOLUME 7.6 fl (7.4-10.4); MONOCYTES % 9.7 % (2.0-8.0); NEUTROPHILS % 65.6 % (40.0-76.0); PLATELET 71 x1000/uL (130-400); RED BLOOD CELL COUNT 2.52 mill/uL (4.2-5.4); RED CELL DISTRIBUTION WIDTH 25.3 % (11.6-14.6)
[2021-04-20 08:00] VITALS: BP 167/82
[2021-04-20] MEDS: NIFEDIPINE XL 60MG TAB PO SCH (09:14)
[2021-04-20] MEDS: PANTOPRAZOLE 40MG DR TABLET PO SCH ×2 (09:14→18:00)
[2021-04-20] MEDS: SUCRALFATE 1G TABLET PO SCH (09:14)
[2021-04-20 12:00] VITALS: BP 145/70
[2021-04-20 16:00] VITALS: BP 127/58
[2021-04-20 20:00] VITALS: BP 171/84
[2021-04-20] MEDS: EPOETIN ALFA-EPBX 10,000 UNIT/ML VIAL SUBCUT SCH (22:27)
[2021-04-21] VITALS: BP 161/70
[2021-04-21 04:00] VITALS: BP 167/79
[2021-04-21 08:00] VITALS: BP 184/96
[2021-04-21 08:18] LABS: BASOPHILS % 0.2 % (0.0-2.0); EOSINOPHILS % 1.1 % (0.0-5.0); HEMATOCRIT. 25.8 % (36.0-48.0); HEMOGLOBIN. 8.5 g/dL (12.0-16.0); LYMPHOCYTES % 27.5 % (20.0-50.0); MEAN CORPUSCULAR HEMOGLOBIN 32.1 pg (28.0-32.0); MEAN CORPUSCULAR VOLUME 97.7 fL (81.0-99.0); MEAN PLATELET VOLUME 7.8 fl (7.4-10.4); MONOCYTES % 9.9 % (2.0-8.0); NEUTROPHILS % 61.3 % (40.0-76.0); PLATELET 72 x1000/uL (130-400); RED BLOOD CELL COUNT 2.64 mill/uL (4.2-5.4); RED CELL DISTRIBUTION WIDTH 24.7 % (11.6-14.6)
[2021-04-21] MEDS: SUCRALFATE 1G TABLET PO SCH (08:25)
[2021-04-21] MEDS: PANTOPRAZOLE 40MG DR TABLET PO SCH ×2 (08:25→17:42)
[2021-04-21] MEDS: NIFEDIPINE XL 60MG TAB PO SCH (08:26)
[2021-04-21 12:00] VITALS: BP 186/87
[2021-04-21] MEDS: CLONIDINE 0.1MG TABLET PO PRN (12:46)
[2021-04-21 16:00] VITALS: BP 152/71
[2021-04-21 20:00] VITALS: BP 157/71
[2021-04-22] VITALS: BP 176/72
[2021-04-22 04:00] VITALS: BP 177/82
[2021-04-22 08:00] VITALS: BP 192/83
[2021-04-22] MEDS: NIFEDIPINE XL 60MG TAB PO SCH (08:31)
[2021-04-22] MEDS: PANTOPRAZOLE 40MG DR TABLET PO SCH ×2 (08:31→18:15)
[2021-04-22] MEDS: SUCRALFATE 1G TABLET PO SCH (08:31)
[2021-04-22] MEDS ORDERED: LOSARTAN POTASSIUM 50 MG TABLET PO SCH (11:00)
[2021-04-22 12:00] VITALS: BP 198/101
[2021-04-22] MEDS: CLONIDINE 0.1MG TABLET PO PRN ×2 (12:13→15:24)
[2021-04-22 12:59] LABS: BASOPHILS % 0.5 % (0.0-2.0); HEMATOCRIT. 25.6 % (36.0-48.0); HEMOGLOBIN. 8.4 g/dL (12.0-16.0); LYMPHOCYTES % 23.1 % (20.0-50.0); MEAN CORPUSCULAR HEMOGLOBIN 31.8 pg (28.0-32.0); MEAN CORPUSCULAR VOLUME 97.4 fL (81.0-99.0); MEAN PLATELET VOLUME 7.6 fl (7.4-10.4); MONOCYTES % 11.5 % (2.0-8.0); NEUTROPHILS % 63.9 % (40.0-76.0); PLATELET 73 x1000/uL (130-400); RED BLOOD CELL COUNT 2.63 mill/uL (4.2-5.4); RED CELL DISTRIBUTION WIDTH 24.1 % (11.6-14.6)
[2021-04-22 16:00] VITALS: BP 172/80
[2021-04-22 18:24] VITALS: BP 133/70
[2021-04-23 13:39] LABS: HEPATITIS B SURFACE ANTIGEN NEGATIVE
== END 2021-04-22 19:55 | disposition home health service (06) | DRG 377 ==
LOC: ER 15:00 → 7EST 21:22 → SUPCPDRO 21:28 → ENRESERV 21:57
PROVIDERS: ADMIT Internal Medicine; ATTEND Internal Medicine
PROC: 30233N1 Transfusion of Nonautologous Red Blood Cells into Peripheral Vein, Percutaneous Approach (ICD-10-PCS; principal; 2021-04-16)
PROC: 5A1D70Z Performance of Urinary Filtration, Intermittent, Less than 6 Hours Per Day (ICD-10-PCS; 2021-04-16)
PROC: 05H333Z Insertion of Infusion Device into Right Innominate Vein, Percutaneous Approach (ICD-10-PCS; 2021-04-17)
PROC: 0DJD8ZZ Inspection of Lower Intestinal Tract, Via Natural or Artificial Opening Endoscopic (ICD-10-PCS; 2021-04-17)
PROC: B54MZZA Ultrasonography of Right Upper Extremity Veins, Guidance (ICD-10-PCS; 2021-04-17)
PROC: 5A1D70Z Performance of Urinary Filtration, Intermittent, Less than 6 Hours Per Day (ICD-10-PCS; 2021-04-18)
PROC: 5A1D70Z Performance of Urinary Filtration, Intermittent, Less than 6 Hours Per Day (ICD-10-PCS; 2021-04-20)
DX: K92.2 Gastrointestinal hemorrhage, unspecified (principal); N18.6 End stage renal disease; D62 Acute posthemorrhagic anemia; I13.2 Hypertensive heart and chronic kidney disease with heart failure and with stage 5 chronic kidney disease, or end stage renal disease; I16.1 Hypertensive emergency; D69.3 Immune thrombocytopenic purpura; E44.0 Moderate protein-calorie malnutrition; J91.8 Pleural effusion in other conditions classified elsewhere; D61.818 Other pancytopenia; E87.5 Hyperkalemia; D63.8 Anemia in other chronic diseases classified elsewhere; B19.20 Unspecified viral hepatitis C without hepatic coma; D53.9 Nutritional anemia, unspecified; I50.9 Heart failure, unspecified; J44.9 Chronic obstructive pulmonary disease, unspecified; K74.60 Unspecified cirrhosis of liver; Z20.822 Contact with and (suspected) exposure to COVID-19; M79.642 Pain in left hand; Z99.2 Dependence on renal dialysis; Z79.899 Other long term (current) drug therapy; Z68.24 Body mass index [BMI] 24.0-24.9, adult; R79.89 Other specified abnormal findings of blood chemistry
CPT/HCPCS: 36415; 36600; 71045; 76937; 80048; 80053; 82270; 82375; 82550; 82553; 82607; 82728; 82746; 82805; 82962; 83540; 83550; 83735; 83880; 84100; 84484; 85025; 85384; 86705; 86709; 86803; 86850; 86900; 86920; 87340; 87426; 90686; 93005; 94640; 97162; 97166; 99285; C1725; J0885; J1200; J1815; J2250; J2405; J2930; J3010; J3490; P9016